=== PATIENT | female | born 1980 | race Caucasian/White ===

== ENCOUNTER 2021-06-04 23:15 | Inpatient (IN) | payer MEDICAID ==
[~2021-06-04] VITALS: Ht 170.2 cm; Wt 53.0 kg
[2021-06-05] MEDS ORDERED: HALOPERIDOL 5 MG TABLET PO PRN (02:15)
[2021-06-05 03:27] VITALS: BP 131/94
[2021-06-05] MEDS ORDERED: BENZOCAINE/MENTHOL LOZENGE PO PRN (06:30)
[2021-06-05] MEDS ORDERED: MAGNESIUM HYDROXIDE SUSPENSION 30 ML UDCUP PO PRN (06:30)
[2021-06-05] MEDS ORDERED: DOCUSATE SODIUM 100 MG CAPSULE PO PRN (06:30)
[2021-06-05] MEDS ORDERED: CloNIDine HCL 0.1 MG TABLET PO PRN (06:30)
[2021-06-05] MEDS ORDERED: LOPERAMIDE HCL 2 MG CAPSULE PO PRN (06:30)
[2021-06-05] MEDS ORDERED: PETROLATUM,WHITE 28 GM JELLY TP PRN (06:30)
[2021-06-05] MEDS ORDERED: ALBUTEROL SULFATE HFA 90 MCG/PUFF 8 GM INHALER IH PRN (06:30)
[2021-06-05] MEDS ORDERED: BACITRACIN 28 GM OINTMENT TP PRN (06:30)
[2021-06-05] MEDS ORDERED: ONDANSETRON HCL 4 MG TABLET PO PRN (06:30)
[2021-06-05] MEDS ORDERED: OMEPRAZOLE 20 MG CAPSULE PO PRN (06:30)
[2021-06-05] MEDS ORDERED: ACETAMINOPHEN 325 MG TABLET PO PRN (06:30)
[2021-06-05] MEDS ORDERED: IBUPROFEN 600 MG TABLET PO PRN (06:30)
[2021-06-05] MEDS: LORazepam 2 MG TABLET PO PRN (09:28)
[2021-06-05] MEDS ORDERED: BUPR-121 PO (09:28)
[2021-06-05] MEDS ORDERED: BUPR75 PO (09:29)
[2021-06-05] MEDS ORDERED: MULT-413 PO (09:32)
[2021-06-05] MEDS ORDERED: NALT50TA6 PO (09:32)
[2021-06-05 16:07] VITALS: BP 112/63
[2021-06-05] MEDS: MAG HYDROX/AL HYDROX/SIMETH ES 30 ML SUSPENSION UDCUP PO PRN (21:57)
[2021-06-06 03:11] VITALS: BP 108/66
[2021-06-06 08:28] VITALS: BP 101/63
[2021-06-06 08:30] VITALS: BP 110/72
[2021-06-06] MEDS: BuPROPion HCL XL 150 MG ER TABLET PO SCH (08:31)
[2021-06-06] MEDS: LORazepam 2 MG TABLET PO PRN (08:31)
[2021-06-06 16:12] VITALS: BP 102/63
[2021-06-07 01:04] VITALS: BP 111/74
[2021-06-07 08:08] VITALS: BP 91/59
[2021-06-07] MEDS ORDERED: THIAMINE 100 MG/ML 2 ML VIAL IM SCH (09:00)
[2021-06-07] MEDS: BuPROPion HCL XL 150 MG ER TABLET PO SCH (09:36)
[2021-06-07] MEDS: MULTIVITAMINS WITH MINERALS, THERAPEUTIC TABLET PO SCH (09:36)
[2021-06-07 16:16] VITALS: BP 106/68
[2021-06-07] MEDS: LORazepam 2 MG TABLET PO PRN ×2 (17:03→21:03)
[2021-06-07] MEDS: ZOLPIDEM TARTRATE 10 MG TABLET PO PRN (21:02)
[2021-06-08] MEDS: LORazepam 2 MG TABLET PO PRN ×4 (04:15→22:42)
[2021-06-08 06:19] VITALS: BP 109/74
[2021-06-08 08:05] LABS: BASOPHILS % (AUTO) 0.6 % (0.0-2.0); EOSINOPHILS % (AUTO) 1.8 % (1.0-6.0); LYMPHOCYTES # (AUTO) 2.6 K/uL (1.0-4.8); LYMPHOCYTES % (AUTO) 31.4 % (22.0-44.0); MEAN CORPUSCULAR HEMOGLOBIN 20.6 pg (26.0-34.0); MEAN CORPUSCULAR HGB CONC 29.9 G/dL (31.0-37.0); MEAN CORPUSCULAR VOLUME 69 fL (80-100); MONOCYTES # (AUTO) 0.7 K/uL (0.1-1.0); NEUTROPHILS # (AUTO) 4.7 K/uL (1.8-7.7); NEUTROPHILS % (AUTO) 57.2 % (40.0-70.0); PLATELET COUNT (AUTO) 277 K/uL (150-450); RED BLOOD CELL COUNT(AUTO) 4.35 MIL/uL (4.00-5.20); RED CELL DISTRIBUTION WIDTH 16.6 % (11.5-14.5)
[2021-06-08 08:37] LABS: ALANINE AMINOTRANSFERASE 63 U/L (12-78); ALBUMIN 2.6 g/dL (3.4-5.0); ALKALINE PHOSPHATASE 39 U/L (46-116); ANION GAP 5 mmol/L (8-16); ASPARTATE AMINOTRANSFERASE 14 U/L (15-37); BILIRUBIN,TOTAL 0.1 mg/dL (0.1-1.0); CALCIUM, TOTAL 8.4 mg/dL (8.8-10.5); CARBON DIOXIDE 25 mmol/L (22-29); CHLORIDE 105 mmol/L (98-107); CREATININE 0.58 mg/dL (0.60-1.30); GLOMERULAR FILTR. RATE CALC > 60 mL/min (>60); GLUCOSE,RANDOM 82 mg/dL (70-110); SODIUM SERUM 135 mmol/L (136-145); TOTAL PROTEIN, SERUM 5.8 g/dL (6.4-8.2); UREA NITROGEN, BLOOD 8 mg/dL (7-18)
[2021-06-08 08:44] VITALS: BP 118/70
[2021-06-08] MEDS: MULTIVITAMINS WITH MINERALS, THERAPEUTIC TABLET PO SCH (09:15)
[2021-06-08] MEDS: THIAMINE 100 MG TABLET PO SCH (09:15)
[2021-06-08] MEDS: BuPROPion HCL XL 150 MG ER TABLET PO SCH (09:16)
[2021-06-08 16:42] VITALS: BP 101/64
[2021-06-08] MEDS: ZOLPIDEM TARTRATE 10 MG TABLET PO PRN (20:32)
[2021-06-09 00:14] VITALS: BP 102/66
[2021-06-09] MEDS: MAG HYDROX/AL HYDROX/SIMETH ES 30 ML SUSPENSION UDCUP PO PRN (01:02)
[2021-06-09 01:50] VITALS: BP 120/72
[2021-06-09] MEDS: THIAMINE 100 MG TABLET PO SCH (08:38)
[2021-06-09] MEDS: MULTIVITAMINS WITH MINERALS, THERAPEUTIC TABLET PO SCH (08:38)
[2021-06-09] MEDS: BuPROPion HCL XL 150 MG ER TABLET PO SCH (08:38)
[2021-06-09] MEDS ORDERED: BUPR-93 PO (10:53)
== END 2021-06-09 11:30 | disposition home or self-care (01) | DRG 750 ==
LOC: B3A 06-05 02:15
PROVIDERS: ADMIT Psychiatry & Neurology Psychiatry; ATTEND Psychiatry & Neurology Psychiatry
DX: F25.9 Schizoaffective disorder, unspecified (principal); R45.851 Suicidal ideations; F41.9 Anxiety disorder, unspecified; G47.00 Insomnia, unspecified; K59.00 Constipation, unspecified; Z20.822 Contact with and (suspected) exposure to COVID-19; F15.10 Other stimulant abuse, uncomplicated
CPT/HCPCS: 80053; 83735; 84100; 85025; J3411

== ENCOUNTER 2021-06-07 01:00 | Emergency (ER) | payer MEDICAID, OTHER ==
[~2021-06-07] VITALS: Ht 170.2 cm; Wt 54.5 kg
[~2021-06-07 01:00] MED LIST: BUPR-121 PO; BUPR75 PO; MULT-413 PO; NALT50TA6 PO
[2021-06-07] MEDS ORDERED: ONDANSETRON HCL 4 MG/2 ML VIAL IVP ONE (01:45)
[2021-06-07] MEDS ORDERED: MORPHINE SULFATE 4 MG/ML SYRINGE IVP ONE (01:45)
[2021-06-07 02:11] LABS: HEMOGLOBIN 8.8 g/dL (12.0-16.0); LYMPHOCYTES # (AUTO) 2.8 K/uL (1.0-4.8); MEAN CORPUSCULAR VOLUME 69 fL (80-100); MONOCYTES # (AUTO) 0.7 K/uL (0.1-1.0)
[2021-06-07 02:17] LABS: BASOPHILS % (AUTO) 0.5 % (0.0-2.0); EOSINOPHILS % (AUTO) 1.3 % (1.0-6.0); HEMATOCRIT 29.3 % (36-46); LYMPHOCYTES % (AUTO) 32.5 % (22.0-44.0); MEAN CORPUSCULAR HEMOGLOBIN 20.7 pg (26.0-34.0); MEAN CORPUSCULAR HGB CONC 29.9 G/dL (31.0-37.0); MONOCYTES % (AUTO) 7.7 % (2.0-9.0); NEUTROPHILS # (AUTO) 4.9 K/uL (1.8-7.7); PLATELET COUNT (AUTO) 304 K/uL (150-450); RED BLOOD CELL COUNT(AUTO) 4.23 MIL/uL (4.00-5.20); RED CELL DISTRIBUTION WIDTH 16.5 % (11.5-14.5)
[2021-06-07 02:21] LABS: ANION GAP 7 mmol/L (8-16); CALCIUM, TOTAL 8.5 mg/dL (8.8-10.5); CARBON DIOXIDE 27 mmol/L (22-29); CHLORIDE 104 mmol/L (98-107); CREATININE 0.65 mg/dL (0.60-1.30); GLOMERULAR FILTR. RATE CALC > 60 mL/min (>60); GLUCOSE,RANDOM 110 mg/dL (70-110); POTASSIUM 3.4 mmol/L (3.5-5.1); SODIUM SERUM 138 mmol/L (136-145); UREA NITROGEN, BLOOD 12 mg/dL (7-18)
[2021-06-07 02:22] LABS: PROTHROMBIN TIME 10.6 SEC (9.4-11.6)
[2021-06-07] MEDS ORDERED: SODIUM CHLORIDE 0.9% 1,000 ML IV ONE (02:30)
[2021-06-07 02:42] LABS: ALANINE AMINOTRANSFERASE 89 U/L (12-78); ALBUMIN 2.8 g/dL (3.4-5.0); ALKALINE PHOSPHATASE 41 U/L (46-116); ASPARTATE AMINOTRANSFERASE 17 U/L (15-37); BILIRUBIN,TOTAL 0.2 mg/dL (0.1-1.0); HCG,QUANTITATIVE < 1 mIU/mL (0-6); LIPASE 99 U/L (73-393); TOTAL PROTEIN, SERUM 6.2 g/dL (6.4-8.2)
[2021-06-07] MEDS ORDERED: SODIUM CHLORIDE 0.9% 100 ML ONE (03:34)
[2021-06-07] MEDS ORDERED: IOHEXOL 350 MG/ML 100 ML VIAL ONE (03:34)
[2021-06-07] MEDS ORDERED: POTASSIUM CHLORIDE 20 MEQ ER TABLET PO ONE (06:30)
[2021-06-07 06:44] VITALS: BP 106/63
== END 2021-06-07 07:00 | disposition home or self-care (01) ==
LOC: EMS 01:01
DX: R10.31 Right lower quadrant pain (principal); R11.0 Nausea; F17.200 Nicotine dependence, unspecified, uncomplicated; F19.90 Other psychoactive substance use, unspecified, uncomplicated; Z88.8 Allergy status to other drugs, medicaments and biological substances
CPT/HCPCS: 36415; 74177; 80053; 83690; 84702; 85025; 85610; 96361; 96374; 96375; 99285; A9575; J2270; J2405; J7030; J7050